=== PATIENT | female | born 1975 | race Caucasian/White ===

== ENCOUNTER 2016-12-05 04:25 | Emergency (ER) | payer SELFPAY ==
[~2016-12-05] VITALS: Ht 162.6 cm; Wt 83.9 kg
[~2016-12-05 04:25] MED LIST: BACTRIM DS TABL1 TA1 PO; CIPRO PO; CLEOCIN150 MG PO; FLAGYL PO; FLAGYL250 M1 PO; KEFLEX500 M1 PO; LEVAQUIN250 MG PO; LORTAB 10-5001 EACH PO; LORTAB 5/500 TA1 TA1 PO; PHENERGAN PO; PHENERGAN25 MG PO; PRILOSEC20 MG DOB
== END 2016-12-05 05:42 | disposition home or self-care (01) ==
LOC: CED 04:25
DX: J01.90 Acute sinusitis, unspecified (principal); F17.210 Nicotine dependence, cigarettes, uncomplicated
CPT/HCPCS: 99283